=== PATIENT | female | born 1980 | race Caucasian/White ===

== ENCOUNTER 2018-10-15 17:10 | Emergency (ER) | payer OTHER, BC ==
[~2018-10-15] VITALS: Ht 162.6 cm; Wt 57.1 kg
[2018-10-15] MEDS ORDERED: ACETAMINOPHEN-1 EAC1 PO (18:44)
[2018-10-15] MEDS ORDERED: NAPROSYN500 MG PO (18:44)
[2018-10-15 18:56] VITALS: BP 106/62
== END 2018-10-15 18:57 | disposition home or self-care (01) ==
LOC: M.ERS 17:10
DX: M54.5 Low back pain (principal); M54.6 Pain in thoracic spine; M25.511 Pain in right shoulder